=== PATIENT | female | born 1960 | race Caucasian/White ===

== ENCOUNTER 2018-12-17 17:04 | Emergency (ER) | payer OTHER ==
[2018-12-17] MEDS ORDERED: LIDOCAINE HCL 1% MDV 50 ML SOL SC ONE (17:30)
[2018-12-17] MEDS ORDERED: LIDOCAINE HCL 1% MPF 30 SOL ONE (17:34)
[2018-12-17] MEDS ORDERED: MIDAZOLAM 2 MG/2 ML SOL ONE (18:33)
[2018-12-17] MEDS ORDERED: HYDROMORPHONE 1 MG/ML SYRINGE ONE (18:33)
[2018-12-17] MEDS ORDERED: MIDAZOLAM 2 MG/2 ML SOL IV ONE (18:35)
[2018-12-17] MEDS ORDERED: HYDROMORPHONE 1 MG/ML SYRINGE IV ONE (18:35)
[2018-12-17 19:27] VITALS: TEMP 97.2
[2018-12-17 20:06] VITALS: BP 126/82; PULSE 75; RESP 20; O2SAT 95
== END 2018-12-17 19:50 | disposition home or self-care (01) | DRG 563 ==
LOC: ED 17:04
DX: S43.004A Unspecified dislocation of right shoulder joint, initial encounter (principal); W01.0XXA Fall on same level from slipping, tripping and stumbling without subsequent striking against object, initial encounter
CPT/HCPCS: 23650; 73030; 96374; 96375; 99285; G0390; J2250; J1170; J2001